=== PATIENT | female | born 1995 | race Caucasian/White ===

== ENCOUNTER 2017-05-20 11:37 | Emergency (ER) | payer OTHER ==
[~2017-05-20] VITALS: Ht 157.5 cm; Wt 50.3 kg
[2017-05-20 11:42] VITALS: BP 122/84
--- NOTE | 2017-05-20 12:17 | ED ANIMAL BITE/WOUND CHECK ---
History of Present Illness General Chief Complaint: Laceration Procedure Stated Complaint: SUTURE REMOVAL Source: patient, family, old records Exam Limitations: no limitations Vital Signs & Intake/Output Vital Signs & Intake/Output Vital Signs Date Time Temp Pulse Resp B/P B/P Pulse O2 O2 Flow FiO2 Mean Ox Delivery Rate 05/20 1221 98 Room Air 05/20 1142 98.4 88 18 122/84 99 Room Air Allergies Coded Allergies: Penicillins (Intermediate, HIVES 05/12/17) Reconcile Medications No Known Home Medications Triage Note: HERE FOR SUTURE REMOVAL TO LEFT FOREFINGER, 5 SUTRES PLACED ON 05/12. Triage Nurses Notes Reviewed? yes Onset: Last week Duration: day(s):, better Timing: recent history Injury Environment: work Is Injury an Animal Bite? No Severity: mild No Modifying Factors: none LMP (ages 10-50): unknown : No Patient currently breastfeeds: No HPI: 8 days prior to admission patient sustained a laceration to left middle finger while attempting to catch broken glass requiring 5 sutures for wound repair. She denies fever chills nausea vomiting diarrhea abdominal pain chest pain shortness breath headache dysuria rash bleeding wound dehiscence discharge. Past History Travel History Traveled to [place] past 21 day No Medical History Any Pertinent Medical History? none Neurological: NONE EENT: NONE Cardiovascular: NONE Respiratory: NONE Gastrointestinal: NONE Hepatic: NONE Renal: NONE Musculoskeletal: NONE Psychiatric: NONE Endocrine: NONE Tetanus Vaccine: 05/12/17 Surgical History Surgical History: non-contributory Psychosocial History What is your primary language Pashto Tobacco Use: Never used ETOH Use: denies use Family History Hx Contributory? No Review of Systems Review of Systems Constitutional: Reports: no symptoms. EENTM: Reports: no symptoms. Respiratory: Reports: no symptoms. Cardiovascular: Reports: no symptoms. GI: Reports: no symptoms. Genitourinary: Reports: no symptoms. Musculoskeletal: Reports: no symptoms. Skin: Reports: see HPI. Neurological/Psychological: Reports: no symptoms. Hematologic/Endocrine: Reports: no symptoms. Immunologic/Allergic: Reports: no symptoms. All Other Systems: Reviewed and Negative Physical Exam Physical Exam General Appearance: well developed/nourished, mild distress Head: atraumatic Eyes: Bilateral: PERRL, EOMI. Ears, Nose, Throat: normal pharynx, normal ENT inspection, hearing grossly normal Neck: normal inspection, supple Respiratory: normal breath sounds Cardiovascular: regular rate/rhythm Peripheral Pulses: 4+ carotid (R), 4+ carotid (L) Gastrointestinal: soft, non-tender Back: normal inspection Extremities: normal range of motion Neurologic/Psych: awake, alert, oriented x 3, normal mood/affect Skin: intact, normal color, warm/dry Lymphatic: no anterior cervical campbell Progress Differential Diagnosis: abscess, cellulitis Plan of Care: Suture removal5 without complication Departure Departure Time of Disposition: 121 Disposition: HOME OR SELF CARE Condition: Stable Clinical Impression Primary Impression: Encounter for removal of sutures Referrals: Emmanuelle Connolly MD (PCP/Family) Departure Forms: Customer Survey General Discharge Information Prescriptions: Current Visit Scripts No Known Home Medications
== END 2017-05-20 12:26 ==
LOC: ERH 11:37
DX: Z48.02 Encounter for removal of sutures (principal)